=== PATIENT | female | born 1965 | race Caucasian/White ===

== ENCOUNTER 2016-06-02 16:20 | Outpatient (CLI) ==
--- NOTE | 2016-06-02 16:56 | DI ---
EXAM: Left hip two-view HISTORY: Hip pain COMPARISON: None FINDINGS: The bones are normal. The hip joint is normal. No focal soft tissue abnormality. IMPERSSION: Normal examination.
--- NOTE | 2016-06-02 16:56 | DI ---
EXAM: Four views of the left knee HISTORY: Left knee pain. COMPARISON: Right knee x-rays 06/04/2012 FINDINGS: Medial and lateral compartments of the left knee demonstrate minimal narrowing and osteoph yte formation. The patella is normal in position with minimal narrowing and osteophyte formation. Soft tissues are normal. There is no displaced fracture or dislocation. There is no lytic or blast ic lesion. IMPRESSION: Mild tricompartmental degenerative disease.
--- NOTE | 2016-06-02 17:02 | CT ---
EXAM: CT right hip without contrast HISTORY: Pain. COMPARISON: None TECHNIQUE: Serial axial images of the right hip were obtained without contrast. These were viewed in multiple planes. FINDINGS: The right pelvis is unremarkable. The right femur is normal. There is no lytic or blasti c lesion. There is no cortical irregularity or displaced fracture. The joint space of the hip demo nstrates mild narrowing and osteophyte formation. The soft tissues are unremarkable. IMPRESSION: No displaced fracture or acute abnormality of the right hip with mild degenerative dise ase present.
--- NOTE | 2016-06-02 17:30 | CT ---
EXAM: CT lumbar spine without contrast HISTORY: Right hip pain COMPARISON: MRI 07/08/2015 TECHNIQUE: CT lumbar spine performed without intravenous contrast. Coronal and sagittal reformatte d images obtained. FINDINGS: The vertebral bodies normal height. No fracture. There is severe intervertebral space na rrowing at L3-L4 and moderate intervertebral disc space narrowing at L4-L5.. Multilevel marginal os teophyte formation. Chronic endplate sclerotic changes are seen at L3-L4 and to a lesser extent L4- L5. No fracture. No subluxation. Sacroiliac joints intact. Aorta normal in caliber with mild ath erosclerosis. No paravertebral soft tissue abnormality. T12-L1: No central canal or neural foramen narrowing. L1-L2: No central canal or neural foraminal narrowing. L2-L3: No central canal or neural foraminal narrowing. L3-L4: Posterior disc osteophyte complex causing very mild central canal and mild bilateral neural foraminal narrowing. L4-L5: Posterior disc osteophyte complex and facet arthrosis causing very mild central canal and an d mild to moderate right and left neural foraminal narrowing. L5-L1: Posterior disc osteophyte complex and facet arthrosis causing mild bilateral neural foramina l narrowing. IMPRESSION: 1. No fracture or subluxation. 2. Chronic discogenic degenerative disease and facet arthrosis. Please see segmental analysis. 3. Chronic endplate sclerotic changes L3-L4 and to a lesser extent L4-L5. Modic type 1 changes were described at L3-L4 on MRI 07/08/2015
== END 2016-06-02 16:21 | disposition home or self-care (01) ==
LOC: RAD 16:20
PROVIDERS: ATTEND Internal Medicine
DX: M25.552 Pain in left hip (principal); M25.562 Pain in left knee; M25.551 Pain in right hip; M54.9 Dorsalgia, unspecified; M54.30 Sciatica, unspecified side